=== PATIENT | male | born 1975 | race Caucasian/White ===

== ENCOUNTER 2018-10-11 18:15 | Emergency (ER) | payer SELFPAY ==
[2018-10-11] MEDS ORDERED: Naproxen 500 MG TAB ONE (18:58)
--- NOTE | 2018-10-11 19:16 | RAD ---
Right hand 3 views: 10/11/2018 COMPARISON: None HISTORY: Right hand pain for 3 months, no history of injury FINDINGS: There is corticated contour irregularity involving the base of the fifth metacarpal suggest ing prior fracture. Clinical correlation required. Mild degenerative changes are noted at the level of the first metacarpal phalangeal joint. No acute fracture or evidence of dislocation. Soft tissue s welling is suspected at the level of the second and third proximal interphalangeal joints. IMPRESSION: Soft tissue swelling as above. No acute fracture or dislocation. Probable old fracture at base of fifth metacarpal.
== END 2018-10-11 19:27 | disposition home or self-care (01) ==
LOC: ERS 18:15
DX: M79.641 Pain in right hand (principal); W22.8XXA Striking against or struck by other objects, initial encounter

== ENCOUNTER 2024-03-15 10:50 | Emergency (ER) | payer SELFPAY ==
[2024-03-15 11:32] LABS: Bacteria/HPF None Seen HPF (None Seen); Bilirubin Negative (Negative); Blood, Urine 3+ (Negative); CAUTI Indications for Culture Dysuria,urgency,freq; Clarity Clear (Clear); Glucose, Urine (Dipstick) Normal (Negative); Ketone, Urine 10 mg/dL (Negative); Leukocyte 25 Leu/uL (Negative); Nitrite Negative (Negative); Protein, Urine (Dipstick) 50 mg/dL (Neg-Trace); RBC/HPF Greater than 50 HPF (0-3); Specific Gravity, Urine 1.037 (1.002-1.036); Squamous Epithelial 0-3 HPF (0-3); Urobilinogen Normal mg/dL (Less than 2); WBC/HPF 0-3 HPF (0-3); pH, Urine 5.5 (5.0-9.0)
[2024-03-15 11:33] LABS: #Basophils 0.06 10x3/uL (0.0-0.2); #Eosinphils Less than 0.03 10x3/uL (0.0-0.7); %Basophils 0.3 % (0.0-1.0); %Monocytes 7.6 % (0.0-10.0); %Neutrophils 83.8 % (42.0-75.0); Hematocrit 39.6 % (42.0-52.0); Hemoglobin 14.1 g/dL (14.0-18.0); Mean Corpuscular HGB CONC 35.6 g/dL (32.0-36.0); Mean Corpuscular Hemoglobin 31.4 pg (27.0-31.0); Mean Corpuscular Volume 88.2 fL (78.0-98.0); Mean Platelet Volume 10.2 fL (7.4-10.4); Platelet Count 267 10x3/uL (130-400); RBC Distribution Width 12.5 % (11.5-14.5); Red Blood Cell (RBC) Count 4.49 mill/uL (4.70-6.10)
[2024-03-15 11:35] LABS: Urine Culture Reflex No No
[2024-03-15 11:51] LABS: ALT (SGPT) 16 U/L (8-55); AST (SGOT) 22 U/L (5-34); Alkaline Phosphatase 85 U/L (40-110); Anion Gap 13 mmol/L (10-20); BUN (Urea Nitrogen) 14 mg/dL (8.9-20.6); Bilirubin, Total 0.9 mg/dL (0.2-1.2); Calc. Creatinine Clearance 0 mL/min (70-130); Calcium 10.1 mg/dL (7.8-10.44); Carbon Dioxide 24 mmol/L (22-29); Chloride 103 mmol/L (98-107); Estimated GFR 103; Glucose 112 mg/dL (70-105); Lipase 11 U/L (8-78); Potassium 3.9 mmol/L (3.5-5.1); Sodium 136 mmol/L (136-145)
[2024-03-15] MEDS ORDERED: Ondansetron PF 4 MG/2 ML Vial ONE (11:52)
[2024-03-15] MEDS ORDERED: Ketorolac Tromethamine 30 MG (1 mL) VIAL ONE (11:52)
[2024-03-15] MEDS ORDERED: Morphine 4 MG/ML VIAL ONE (11:52)
[2024-03-15 11:56] LABS: Troponin I Less than 0.010 ng/mL (< 0.028)
== END 2024-03-15 12:41 | disposition home or self-care (01) ==
LOC: ERS 10:50
DX: N13.2 Hydronephrosis with renal and ureteral calculous obstruction (principal); R31.29 Other microscopic hematuria; F17.210 Nicotine dependence, cigarettes, uncomplicated; Z55.6 Problems related to health literacy
CPT/HCPCS: 36415; 74176; 80053; 81001; 83605; 83690; 84484; 85025; 87086; 93005; 96374; 96375; J1885; J2272; J2405